=== PATIENT | female | born 1955 | race Caucasian/White ===

== ENCOUNTER → 2020-11-13 | Outpatient (CLI) | payer BC ==
[~2020-11-13] MED LIST: ALBU17AE23 IH; ALPR0.2550 PO; CA C1TAB31 PO; CATHETER FLUSH 10 ML SYR IV PRN; HYDR-707 PO; LVT.1T PO; REGADENOSON 0.4 MG/5 ML SYR (LEXISCAN) IV ONE; SOLI5TAB4 PO; SPIR100T28 PO; TOPI100T PO
[2020-11-13 12:44] VITALS: BP 132/70
== END ==
LOC: CARD 10:00
PROVIDERS: ATTEND Internal Medicine Cardiovascular Disease
DX: R06.09 Other forms of dyspnea (principal)
CPT/HCPCS: 78452; 93017; 93306; A9502

== ENCOUNTER 2020-12-18 08:00 | Day surgery (SDC) | payer BC ==
[~2020-12-18] VITALS: Ht 157 cm; Wt 105.0 kg
[2020-12-18] VITALS (12 sets, daily range): BP systolic 86–142; BP diastolic 66–94
[2020-12-18 07:44] LABS: HEMATOCRIT 47 % (35-52); HEMOGLOBIN 15.4 g/dL (11.5-16.0); MEAN CORPUSCULAR HEMOGLOBIN 31 pg (25-34); MEAN CORPUSCULAR HGB CONC 33 g/dL (32-36); MEAN CORPUSCULAR VOLUME 94 fL (80-99); MEAN PLATELET VOLUME 10.5 fL (9.0-12.2); PLATELET COUNT 348 10^3/uL (130-400); WHITE BLOOD COUNT 9.8 10^3/uL (4.3-11.0)
[2020-12-18 07:48] LABS: PROTHROMBIN TIME PATIENT 13.1 SEC (12.2-14.7)
[2020-12-18 07:55] LABS: ALBUMIN 3.9 GM/DL (3.2-4.5); BILIRUBIN,TOTAL 0.6 MG/DL (0.1-1.0); CALCIUM 9.4 MG/DL (8.5-10.1); CREATININE SERUM 0.81 MG/DL (0.60-1.30); POTASSIUM 4.3 MMOL/L (3.6-5.0); TOTAL PROTEIN 7.9 GM/DL (6.4-8.2)
[~2020-12-18 08:00] MED LIST changes: -CATHETER FLUSH 10 ML SYR IV PRN; +HEParin (CATH LAB) 2,000 ML IV ONE; +LIDOCAINE 1% INJ 20 ML 20 ML VIAL ONE; +NS IV 1000 ML 1,000 ML IV SCH; +NS IV 1000 ML 1,000 ML ONE; -REGADENOSON 0.4 MG/5 ML SYR (LEXISCAN) IV ONE
[2020-12-18] MEDS ORDERED: MIDAZOLAM 5 MG/5 ML (VERSED) VIAL ONE (08:14)
[2020-12-18] MEDS ORDERED: fentaNYL INJ 100 MCG/2 ML AMP ONE (08:14)
[2020-12-18] MEDS ORDERED: RT-ALBUINH IH (08:18)
[2020-12-18] MEDS ORDERED: LEVO100T7 PO (08:18)
[2020-12-18] MEDS ORDERED: ASPI-789 PO (08:18)
[2020-12-18] MEDS ORDERED: TRAM50TA3 PO (08:18)
[2020-12-18] MEDS ORDERED: SOLI10TA2 PO (08:18)
[2020-12-18] MEDS ORDERED: CLOB30CR TP (08:18)
[2020-12-18] MEDS ORDERED: ALPR0.25 PO (08:18)
[2020-12-18] MEDS ORDERED: LOPE-175 PO (08:18)
[2020-12-18] MEDS ORDERED: TOPI100T PO (08:18)
[2020-12-18] MEDS ORDERED: DIPH25TA65 PO (08:18)
[2020-12-18] MEDS ORDERED: GLUC-219 PO (08:18)
[2020-12-18] MEDS ORDERED: ASPI325T32 PO (08:18)
[2020-12-18] MEDS ORDERED: META800T PO (08:18)
[2020-12-18] MEDS ORDERED: IBUP-2473 PO (08:18)
[2020-12-18] MEDS ORDERED: NYST60PO TP (08:18)
[2020-12-18] MEDS ORDERED: METR45GE9 TP (08:18)
[2020-12-18] MEDS ORDERED: BUTA-249 PO (08:18)
[2020-12-18] MEDS ORDERED: CALC-823 PO (08:18)
[2020-12-18] MEDS ORDERED: SPIR100T4 PO (08:18)
--- NOTE | 2020-12-18 09:05 | Discharge Inst-Cardiology ---
Discharge Inst-Cardiac Discharge Medications Continued Medications: Albuterol Sulfate (Proair Hfa) 1 Puff Puff 2 PUFF IH Q4H PRN for SHORTNESS OF BREATH, PUFF Alprazolam (Xanax) 0.25 Mg Tablet 0.25 MG PO DAILY PRN for ANXIETY, TAB Aspirin/Acetaminophen/Caffeine (Excedrin Migraine Caplet) 1 Each Tablet 2 EACH PO Q6-8HR PRN for Headache, TAB Butalb/Acetaminophen/Caffeine (Esgic 50-325-40 mg Tablet) 1 Each Tablet 1 EACH PO Q8H PRN for HEADACHE, TAB Calcium Carbonate (Calcium) 500 Mg Tablet 500 MG PO DAILY, TAB Clobetasol Propionate (Temovate) 30 Gm Cream..g. 1 APPLIC TP HS, TUBE Diphenhydramine HCl (Benadryl Allergy) 25 Mg Tablet 25-50 MG PO Q6H PRN for ALLERGY SYMPTOMS, TAB Glucosamine/D3/Boswellia Magaly (Osteo Bi-Flex Tablet) 1 Each Tablet 1 EACH PO DAILY, TAB Ibuprofen (Ibuprofen) 200 Mg Tablet 400 MG PO Q8H PRN for PAIN-MILD (1-4), TAB Levothyroxine Sodium (Levothyroxine Sodium) 100 Mcg Tablet 100 MCG PO HS, TAB Loperamide HCl (Imodium A-D) 2 Mg Capsule 2-4 MG PO UD PRN for DIARRHEA, CAP Metaxalone (Metaxalone) 800 Mg Tablet 800 MG PO TID PRN for MUSCLE SPASMS, TAB Metronidazole (Metronidazole) 45 Gm Gel..gram. 1 APPLIC TP HS, TUBE Nystatin (Nystop) 60 Gm Powder 1 APPLIC TP TID PRN for HEAT RASH, EA Solifenacin Succinate (Vesicare) 10 Mg Tablet 10 MG PO HS, TAB Spironolactone (Spironolactone) 100 Mg Tablet 100 MG PO 0700,1500, TAB Topiramate (Topamax) 100 Mg Tablet 100 MG PO HS, TAB Tramadol HCl (Tramadol HCl) 50 Mg Tablet 50 MG PO Q6H PRN for PAIN-MODERATE (5-7), TAB Discontinued Medications: Aspirin (Aspirin EC) 325 Mg Tablet. 325-650 MG PO Q8H PRN for PAIN-MILD (1-4), TAB LUANA BARR MD FACP FAC CCDS Dec 18, 2020 09:05
--- NOTE | 2020-12-18 09:06 | Discharge Inst-Post CATH ---
Discharge Inst-CATH/EP Post Cardiac Cath/EP D/C Inst Follow Up/Plan F/u with Dr Schneider in 2 weeks * Go Home directly and rest. * Limit activity of the leg (or wrist if it was used) for 7 days including aerobics, swimming, jogging, bicycling, etc. * Restrict stair-climbing for 7 days if possible, if not, climb up with your non-cath leg, then bring together on the same step. * Avoid lifting, pushing, pulling or excessive movement of the affected extremity for 7 days. * Customary sexual activity may be resumed after 2 days-use caution not to use a position that strains or causes pain to the affected extremity. * No driving for 24 hours. * NO SMOKING. * Avoid straining for bowel movements for 7 days. * Gentle walking on level ground is allowed. * Returning to work will depend on the type of procedure and the results. Your doctor will discuss this with you. CALL YOUR DOCTOR FOR ANY OF THE FOLLOWING: *If bleeding from the puncture site occurs- Apply gentle pressure to site with clean cloth and call your doctor or EMS. * If a knot or lump forms under the skin, increases in size, or causes pain. * If bruising appears to be worsening or moving further down your leg instead of disappearing. * Temperature above 101 F. CARE OF YOUR GROIN INCISION; * Bruising or purple discoloration of the skin near the puncture site is common. * You may shower only, no bathtub bathing for 5 days. Be careful to avoid slipping as your leg may feel stiff. * If a closure device was used on your femoral artery, please see the attached guide regarding care of the device and your leg. * Leave dressing on FOR 24 hours. CARE OF YOUR WRIST INCISION; * Bruising or purple discoloration of the skin near the puncture site is common. * You may shower. * DO NOT submerge wrist. * Leave dressing on FOR 24 hours. LUANA SCHNEIDER MD [facility] CCDS Dec 18, 2020 09:06
[2020-12-18] MEDS ORDERED: PATIENT MAY USE OWN MEDS, ALL PO SCH (09:15)
[2020-12-18] MEDS ORDERED: NS IV 1000 ML 1,000 ML IV SCH (09:15)
--- NOTE | 2020-12-18 09:16 | Cardiac Procedure Note-CS/ASA ---
Pre-Procedure Note Pre-Op Procedure Note H&P Reviewed The H&P was reviewed, patient examined and no changes noted. Date H&P Reviewed: Dec 18, 2020 Time H&P Reviewed: 08:20 Conscious Sedation Pre-Proced Time 08:20 ASA Score 3 For ASA 3 and 4: Consider anesthesia and medical clearance. Also, for patients with a history of failed moderate sedation consider anesthesia. Airway Lungs Heart ASA score ASA 1: a normal healthy patient ASA 2: a patient with a mild systemic disease (mid diabetes, controlled hypertension, obesity ASA 3: a patient with a severe systemic disease that limits activity (angina, COPD, prior Myocardial infarction) ASA 4: a patient with an incapacitating disease that is a constant threat to life (CHF, renal failure) ASA 5: a moribund patient not expected to survive 24 hrs. (ruptured aneurysm) ASA 6: a declared brain- patient whose organs are being harvested. For emergent operations, add the letter E after the classification Mallampati Classification Grade 3 Sedation Plan Analgesia, Amnesia, Plan communicated to team members, Discussed options with patient/fam, Discussed risks with patient/fam The patient is an appropriate candidate to undergo the planned procedure, sedation, and anesthesia. The patient immediately re-assessed prior to indication. LUANA BARR MD FACP FAC CCDS Dec 18, 2020 09:16
--- NOTE | 2020-12-18 11:11 | CARDIAC CATHETERIZATION ---
DATE OF SERVICE: 12/18/2020 CARDIAC CATHETERIZATION REPORT The patient is a 65-year-old lady, who has been experiencing symptoms suggestive of angina. Myocardial perfusion imaging indicated a small to moderate amount of anteroapical ischemia. Cardiac catheterization was recommended. Informed consent was obtained. DESCRIPTION OF PROCEDURE: She was brought to the cardiac catheterization laboratory in a fasting state. Right groin was prepared and draped in the usual sterile fashion. Lidocaine 1% was used for local anesthesia. Modified Seldinger technique was used to advance a 5-Beninese sheath in the right femoral artery. A 5-Beninese JR4 catheter was used for left coronary angiography, 5-Beninese JR4 catheter for right coronary angiography, 5-Beninese pigtail catheter was used for left heart catheterization and left ventricular angiography. Angiography of the right femoral artery was carried out through the sheath and Mynx was used to achieve hemostasis at the end of the cardiac catheterization procedure after sheath removal. HEMODYNAMICS: Left ventricular end-diastolic pressure following coronary angiography was 12 mmHg. There was no significant pressure gradient on pullback across the aortic valve. Ascending aortic pressure was 103/62 with a mean of 83 mmHg. CORONARY ANGIOGRAPHY: Left main coronary artery does not exhibit significant disease. Left anterior descending artery does not exhibit significant disease. Left circumflex artery is codominant with the right coronary artery and does not exhibit significant disease. Right coronary artery is small and codominant and does not exhibit significant disease. LEFT VENTRICULAR ANGIOGRAPHY: Left ventricular angiography was carried out in the right anterior oblique projection. Global left ventricular systolic function is normal. Left ventricular ejection fraction is approximately 65%. CONCLUSIONS: 1. No angiographically significant coronary artery disease. 2. Normal global left ventricular systolic function with ejection fraction approximately 65%. 3. Normal left ventricular end-diastolic pressure. DISCUSSION AND RECOMMENDATIONS: Based on results of the study, it appears appropriate to continue a conservative approach. Risk factor modification has been reviewed. Myocardial perfusion imaging appears to have been false positive. Outpatient followup is advised. Job ID: [id number] DocumentID: [id number] Dictated Date: 12/18/2020 08:57:42 [employer] Date: 12/18/2020 11:10:42 Dictated By: LUANA BARR MD, MA, FACP, FACC,
== END 2020-12-18 12:20 | disposition home or self-care (01) ==
LOC: CATH 08:00 → SDC 09:00 → CATH 12:20
PROVIDERS: ATTEND Internal Medicine Cardiovascular Disease
DX: I25.89 Other forms of chronic ischemic heart disease (principal); E66.9 Obesity, unspecified; Z79.899 Other long term (current) drug therapy; Z90.710 Acquired absence of both cervix and uterus; Z68.41 Body mass index [BMI] 40.0-44.9, adult; Z79.82 Long term (current) use of aspirin; Z79.890 Hormone replacement therapy; Z83.3 Family history of diabetes mellitus; Z80.9 Family history of malignant neoplasm, unspecified
CPT/HCPCS: 80053; 80061; 85027; 85610; 85730; 87081; 93458; C1760; C1894; 36415